=== PATIENT | female | born 1970 | race Caucasian/White ===

== ENCOUNTER → 2016-12-20 | Outpatient (CLI) | payer BC | END | disposition home or self-care (01) | LOC: YCFC.O 07:20 | PROVIDERS: ATTEND Nurse Practitioner Family | DX: Z13.220 Encounter for screening for lipoid disorders (principal); E66.3 Overweight ==

== ENCOUNTER 2018-08-24 09:29 | Inpatient (IN) | payer BC, OTHER ==
[2018-08-24] MEDS ORDERED: IPRATROPIUM/ALBUTEROL 3 ML VIAL NEB ONE (10:26)
[2018-08-24] MEDS ORDERED: PROCHLORPERAZINE INJ 10 MG/2 ML VIAL IV ONE (10:26)
[2018-08-24] MEDS ORDERED: LACTATED RINGERS 1,000 ML IVS ONE (10:26)
--- NOTE | 2018-08-24 10:28 | ED.PDOC ---
History of Present Illness - General Chief Complaint: General Stated Complaint: N/V/D, fever, congestion Time Seen by Provider: 08/24/18 10:24 Source: patient - History of Present Illness Initial Comments: Tova Ordonez 47 y/o female came to ER with N/V/D fever Cough and congestion since last night. Timing/Duration: 24 hours Severity: moderate Improving Factors: nothing Worsening Factors: nothing Associated Symptoms: cough Allergies/Adverse Reactions: Allergies NO KNOWN ALLERGY Allergy (Verified 08/24/18 09:49) Review of Systems - Review of Systems Constitutional: States: see HPI, fever EENTM: States: see HPI, nose congestion Respiratory: States: see HPI, cough Cardiology: States: no symptoms reported Gastrointestinal/Abdominal: States: see HPI, diarrhea Genitourinary: States: no symptoms reported Musculoskeletal: States: no symptoms reported Skin: States: no symptoms reported Neurological: States: no symptoms reported All other Systems: Reviewed and Negative Past Medical History (General) - Patient Medical History Hx Stroke: No Hx Asthma: Yes Hx of COPD: Yes Hx Congestive Heart Failure: No Hx Diabetes: No Hx MRSA: No Surgical History: other - Vaccination History Hx Tetanus, Diphtheria Vaccination: Yes Hx Influenza Vaccination: Yes - 2017 Hx Pneumococcal Vaccination: No - Social History Hx Tobacco Use: Yes - Quit 2015 Hx Alcohol Use: No Hx Physical Abuse: No Hx Emotional Abuse: No - Female History Patient is a Female of Child Bearing Age (10 -59 yrs old): No - Menopause Family Medical History - Family History Mother Living Status: Still Living Hx Family Asthma: - Mom has COPD Hx Family;Other: Father has Diabetes Physical Exam - Physical Exam General Appearance: Alert, Comfortable, No apparent distress Eye Exam: bilateral normal Ears, Nose, Throat: hearing grossly normal, normal ENT inspection, normal pharynx Neck: non-tender, supple, normal inspection Respiratory: no respiratory distress, rhonchi Cardiovascular/Chest: normal peripheral pulses, regular rate, rhythm, no murmur Peripheral Pulses: radial,right: 2+, radial,left: 2+ Gastrointestinal/Abdominal: non tender, soft, no organomegaly Back Exam: no CVA tenderness, no vertebral tenderness Extremity: no pedal edema, no calf tenderness Neurologic: alert, oriented x 3 Skin Exam: normal color, warm/dry Progress - Progress Progress: 08/24/18 10:31 Vital Signs - 8 hr 08/24/18 09:35 Temperature 103.1 F H Respiratory 18 Rate Blood Pressure 90/62 [Right Arm] O2 Sat by Pulse 94 L Oximetry 08/24/18 13:35 Vital Signs - 8 hr 08/24/18 08/24/18 09:35 11:03 Temperature 103.1 F H Pulse Rate 109 H Respiratory 18 20 Rate Blood Pressure 90/62 [Right Arm] O2 Sat by Pulse 94 L 95 Oximetry - Results/Orders Results/Orders: 08/24/18 10:02 STREP A SCREEN CULTURE Stat 08/24/18 10:26 IV Care:Saline Lock per Protoc QSHIFT CLOSTRIDIUM DIFFICILE AG/TOXIN Urgent URINALYSIS Stat 08/24/18 12:22 Azithromycin IV [Zithromax IV] 500 mg Sodium Chloride 0.9% 250Ml [NS 250ml] 250 ml IVPB ONCE BLOOD CULTURE Stat Laboratory Results - last 24 hr 08/24/18 08/24/18 08/24/18 10:02 10:26 10:26 WBC 13.5 H RBC 4.65 Hgb 12.9 Hct 39.7 MCV 85.4 MCH 27.7 MCHC 32.5 L RDW 14.5 Plt Count 151 MPV 10.1 Absolute Neuts (auto) 12.00 H Absolute Lymphs (auto) 0.70 L Absolute Monos (auto) 0.80 Absolute Eos (auto) 0.00 Absolute Basos (auto) 0.00 Neutrophils % 88.4 H Lymphocytes % 5.2 L Monocytes % 6.2 Eosinophils % 0.1 L Basophils % 0.1 PT 11.4 H INR 1.14 PTT (SP) 27.2 Sodium 132 L Potassium 4.3 Chloride 99 L Carbon Dioxide 22 Anion Gap 15.3 BUN 14 Creatinine 0.87 BUN/Creatinine Ratio 16.1 Random Glucose 90 Serum Osmolality 264.5 L Lactic Acid 1.9 Calcium 7.8 L Magnesium 1.3 L Total Bilirubin 0.9 Direct Bilirubin 0.3 H Indirect Bilirubin 0.6 AST 35 ALT 18 Alkaline Phosphatase 93 Creatine Kinase 566 H* CK-MB (CK-2) 8.3 H* CK-MB (CK-2) % 1.47 Troponin I < 0.02 Serum Total Protein 6.5 Albumin 3.1 L Group A Strep Rapid Negative - EKG/XRAY/CT XRAY: chest - upper lobe pneumonia right Departure - Departure Clinical Impression: Nausea vomiting and diarrhea Pneumonia Qualifiers: Pneumonia type: due to unspecified organism Laterality: right Lung location: upper lobe of lung Qualified Code(s): J18.1 - Lobar pneumonia, unspecified organism Time of Disposition: 13:34 Disposition: Admit Patient Departure Forms: ED Discharge - Pt. Copy, Patient Portal Self Enrollment Referrals: Shahana Palacio, LINE SERVICER [Primary Care Provider] - 1-2 Weeks Decision To Admit - Decistion To Admit Decision to Admit Reason: Admit from ER Decision to Admit Date: 08/24/18 - D/W Dr. Winn-Hospitalist Decision to Admit Time: 13:32
--- NOTE | 2018-08-24 10:51 | RAD ---
EXAM: Chest,1 View CLINICAL HISTORY: cough/fever COMPARISON STUDY: None TECHNICAL: AP chest x-ray FINDINGS: Dense consolidative opacity is present within the right upper lobe. Pneumonia is likely given the patient's clinical history. Follow-up will be needed after therapy to show resolution and exclude an underlying mass. There is no edema or large effusion. The heart is not enlarged. IMPRESSION: 1. Right upper lobe consolidation is suggestive of pneumonia but post therapy follow-up is recommended to show resolution. Electronically signed by: Wisam Jett MD 08/24/2018 10:48 AM CDT
[2018-08-24] MEDS ORDERED: cefTRIAXone SODIUM 1 GM in SODIUM CHL 0.9% 50ML MIN-BAG+ 50 ML IVPB ONE (12:22)
[2018-08-24] MEDS ORDERED: AZITHROMYCIN IV 500 MG in SODIUM CHLORIDE 0.9% 250ML 250 ML IVPB ONE (12:22)
[2018-08-24] MEDS ORDERED: AZITHROMYCIN IV 500 MG VIAL IVPB ONE (12:24)
[2018-08-24] MEDS ORDERED: SODIUM CHL 0.9% 50ML MIN-BAG+ 50 ML IVPB ONE (12:24)
[2018-08-24] MEDS ORDERED: cefTRIAXone SODIUM 1 GM VIAL ONE (12:24)
[2018-08-24] MEDS ORDERED: SODIUM CHLORIDE 0.9% 250ML 250 ML ONE (12:24)
[2018-08-24] MEDS ORDERED: SODIUM CHLORIDE 0.9% 1000ML 1,000 ML IVS PRN ×2 (13:32→13:50)
[2018-08-24] MEDS ORDERED: SODIUM CHLORIDE 0.9% (FLUSH) 10 ML SYG IV PRN (13:50)
[2018-08-24] MEDS ORDERED: IPRATROPIUM/ALBUTEROL 3 ML VIAL NEB PRN (13:50)
[2018-08-24] MEDS ORDERED: ONDANSETRON 4 MG TAB PO PRN (13:56)
[2018-08-24] MEDS ORDERED: SODIUM CHLORIDE 0.9% 1000ML 1,000 ML IVS ONE ×2 (13:56→17:00)
[2018-08-24] MEDS ORDERED: IV SET AND CAP CHANGE INJ INJ SCH (14:00)
[2018-08-24] MEDS ORDERED: ENOXAPARIN SODIUM 40 MG/0.4 ML SYG SUBCU SCH (14:00)
--- NOTE | 2018-08-24 14:02 | HP ---
CHIEF COMPLAINT: Nausea and vomiting times 1 day, fever and chills. HISTORY OF PRESENT ILLNESS: The patient was brought to the Emergency Room with her mother after having the insidious onset of nausea and vomiting the day prior to her arrival. She had some fevers and chills intermittently over the last 24 hours, but continues to be nauseated and vomited last this morning around 0700. She has not been hospitalized or at any healthcare facilities within the last 90 days. She does not endorse any further symptoms other than a dry underlying cough that is intermittent throughout the day. She denies any dizziness or any chest pains. Workup in the E. R. found the patient to have a temperature of 103.1, was tachycardic, tachypneic, and also had a white blood cell count of 13.5. Upon review of chest x-ray, it was found that she had a right upper lobe pneumonia, but also a normal lactate. Hospitalist was called for admission due to pneumonia. REVIEW OF SYSTEMS: GENERAL: The patient is lying on the bed in acute distress, just feeling sick and tired as well as slightly dehydrated, able to converse normally though. CHEST: The patient has a cough and slight shortness of breath, but no chest wall pain. CARDIO: She denies chest pain, denies palpitations, no extremity swelling. ABDOMEN: Denies any abdominal pain, no problems with bowel movements. NEUROLOGIC: Denies confusion, does have a small headache. EXTREMITIES: No deformities, extremities are cold. PAST MEDICAL HISTORY: 1. Chronic asthma. PAST SURGICAL HISTORY: 1. History of herniated disc repair. CURRENT MEDICATIONS: 1. ProAir inhaler p.r.n. wheezing. 2. Symbicort inhaler b.i.d. ALLERGIES: SOCIAL HISTORY: 30 pack year smoking history, quit 3 years ago. Denies any alcohol use. Denies any illicit drug use. PHYSICAL EXAMINATION: VITAL SIGNS: Temperature 103.1, heart rate 109, respiratory rate 20, blood pressure 90/62, O2 saturations 94 on room air. GENERAL: Patient lying on her left side in bed, able to converse normally but does not feel very well. No confusion. CHEST: Lungs are clear to auscultation without wheezing, aside from a slight decrease in air movement in the right upper lobe consistent with chest x-ray seen below, no chest wall tenderness, slight cough during exam. CARDIOVASCULAR: Tachycardic, no murmurs, normal rhythm, no peripheral edema. ABDOMEN: Soft, non-tender, no masses appreciated. EXTREMITIES: All extremities with normal pulses, no deformities. NEUROLOGIC: Alert and oriented to person, place, and time, cranial nerves intact. LABORATORY: WBC 13.5, hemoglobin/hematocrit 12.9/39.7, platelet count 151, RDW is normal at 14.5. Sodium 132, potassium 4.3, chloride 99, CO2 is 22, BUN/creatinine 14/0.87, lactic acid normal at 1.9, magnesium slightly low at 1.3. CK 566, troponin negative. Rapid Strep swab negative. MICROBIOLOGY: Influenza swab negative. Blood cultures pending, drawn. IMAGING: Chest x-ray 08/24/18: "Right upper lobe consolidation suggestive of pneumonia but post therapy followup is recommended to show resolution." ASSESSMENT: 1. Sepsis secondary to right upper lobe pneumonia, tachycardia/fever/ tachypnea/WBCs elevation are present. 2. Leukocytosis secondary to #1. 3. Fever secondary to #1. 4. Tachycardia secondary to #1. 5. Chronic asthma. PLAN: Will admit Ms. Ordonez with sepsis secondary to right upper lobe pneumonia. We have initiated sepsis protocol regarding fluid resuscitation. She received 1 liter of normal saline in the E. R. We will continue with another bolus and then IV fluids as maintenance and a half rate. Given her history of asthma we will also have DuoNeb p.r.n. wheezing, even though she is not wheezing and did not have any sort of asthma attack at this time. We will prophylactically give her Lovenox for DVT prevention. She was given Rocephin and azithromycin in the E. R. via IV. We will continue these each daily. Given her low sodium, I expect this to normalize with fluids resuscitation. She also has slight nausea at baseline, antiemetics are on board for this. I presume her stay will be at least 2 midnights until we can resolve the sepsis and confirm that she has good p.o. intake and her fluid status has normalized. #[id number] [facility]
[2018-08-24] MEDS ORDERED: ACETAMINOPHEN 500 MG TAB PO ONE (14:33)
[2018-08-24] MEDS ORDERED: SODIUM CHLORIDE 0.9% IVPB PRN (15:11)
[2018-08-24] MEDS ORDERED: IBUPROFEN IVPB PRN (15:11)
[2018-08-24] MEDS ORDERED: ALBUTEROL SULFATE 2.5 MG/3 ML VIAL NEB PRN (15:13)
[2018-08-24] MEDS: IPRATROPIUM/ALBUTEROL 3 ML VIAL NEB SCH ×2 (15:29→20:27)
[2018-08-24] MEDS ORDERED: IBUPROFEN 200 MG TAB PO PRN (15:42)
[2018-08-24] MEDS ORDERED: MAGNESIUM SULFATE PREMIX 2GM 2 GM in PREMIX BAG 1 BAG IVPB ONE (16:19)
[2018-08-24] MEDS ORDERED: MAGNESIUM SULFATE PREMIX 2GM 50 ML IVPB ONE (16:43)
[2018-08-24 20:05] VITALS: BP 72/45; TEMP 98.1
[2018-08-24] MEDS ORDERED: NOREPINEPHRINE BITARTRATE 4 MG/4 ML VIAL IVPB ONE (20:41)
[2018-08-24] MEDS ORDERED: DEXTROSE 5% (AVIVA) 500ML 500 ML IVPB ONE (20:43)
[2018-08-24 21:53] VITALS: O2SAT 100
--- NOTE | 2018-08-25 08:26 | DS ---
ADMISSION DIAGNOSIS: 1. Sepsis secondary to right upper lobe pneumonia, tachycardia/fever/ tachypnea/WBCs elevation are present. 2. Leukocytosis secondary to #1. 3. Fever secondary to #1. 4. Tachycardia secondary to #1. 5. Chronic asthma. REASON FOR ADMISSION: The patient was brought to the Emergency Room with her mother after having the insidious onset of nausea and vomiting the day prior to her arrival. She had some fevers and chills intermittently over the last 24 hours, but continues to be nauseated and vomited last this morning around 0700. She has not been hospitalized or at any healthcare facilities within the last 90 days. She does not endorse any further symptoms other than a dry underlying cough that is intermittent throughout the day. She denies any dizziness or any chest pains. Workup in the E. R. found the patient to have a temperature of 103.1, was tachycardic, tachypneic, and also had a white blood cell count of 13.5. Upon review of chest x-ray, it was found that she had a right upper lobe pneumonia, but also a normal lactate. Hospitalist was called for admission due to pneumonia. HOSPITAL COURSE: Ms. Ordonez was initially admitted meeting criteria for sepsis secondary to right upper lobe pneumonia. She responded well to initial fluid resuscitation per sepsis protocol, but after completing the resuscitation, her blood pressure remained low enough to require an extra one liter bolus. Her blood pressure still remained low after the third bolus, thus we were able to put an external jugular IV on the right side and start Levophed in preparation for transfer to [facility] for more critical care. VITAL SIGNS: Last blood pressure 72/45. Temperature 98.1. Pulse 81. O2 saturation 97% on 1 liter nasal cannula. LABORATORY: White blood cell count 13.5, hemoglobin 12.9, hematocrit 39.7, platelet count 151. Low sodium 132, potassium 4.3, chloride 99, lactate 1.9. BUN 14, creatinine 27. Troponin negative. Creatinine kinase 166. Urinalysis with moderate blood and 3 to 5 urine red blood cells. Group A strep negative. Influenza negative. IMAGING: Chest x-ray 08-24-18 shows right upper lobe consolidation, suggestive of pneumonia. DISCHARGE DIAGNOSIS: 1. Sepsis secondary to right upper lobe pneumonia, failed IV fluid resuscitation, requiring pressors and transfer. 2. Leukocytosis and fever secondary to #1. 3. Tachycardia secondary to #1. 4. Chronic asthma. PLAN: Ms. Ordonez was able to obtain pressor support with Levophed through a right external jugular line placed by ER Dr. Reeder. She was taken by air transport to [facility] Emergency Room for further critical care given her poor response to IV fluid resuscitation. She was treated with a full IV dose of Rocephin and azithromycin in the Emergency Room. #[id number] [facility]
[2018-08-25] MEDS ORDERED: cefTRIAXone SODIUM 1 GM in SODIUM CHL 0.9% 50ML MIN-BAG+ 50 ML IVPB SCH (12:00)
[2018-08-25] MEDS ORDERED: AZITHROMYCIN IV 500 MG in SODIUM CHLORIDE 0.9% 250ML 250 ML IVPB SCH (13:00)
== END 2018-08-24 21:25 | disposition short-term general hospital (02) | DRG 871 ==
LOC: ER 09:29 → MS 14:00
PROVIDERS: ADMIT Family Medicine; ATTEND Family Medicine
DX: A41.9 Sepsis, unspecified organism (principal); J18.1 Lobar pneumonia, unspecified organism; J45.909 Unspecified asthma, uncomplicated; Z79.51 Long term (current) use of inhaled steroids; Z79.899 Other long term (current) drug therapy; Z87.891 Personal history of nicotine dependence

== ENCOUNTER 2019-05-20 10:19 | Inpatient (IN) | payer OTHER ==
[2019-05-20] MEDS ORDERED: IPRATROPIUM/ALBUTEROL 3 ML VIAL NEB ONE (10:31)
[2019-05-20] MEDS ORDERED: SODIUM CHLORIDE 0.9% 1000ML 1,000 ML IVS ONE (10:32)
[2019-05-20] MEDS ORDERED: cefTRIAXone SODIUM 1 GM in SODIUM CHL 0.9% 50ML MIN-BAG+ 50 ML IVPB ONE (10:32)
[2019-05-20] MEDS ORDERED: ONDANSETRON INJ 4 MG/2 ML VIAL IV ONE (10:32)
[2019-05-20] MEDS ORDERED: ACETAMINOPHEN 325 MG TAB PO ONE (10:32)
[2019-05-20] MEDS ORDERED: methylPREDNISolone SODIUM SUC 125 MG/2 ML VIAL IV ONE (10:33)
[2019-05-20] MEDS ORDERED: AZITHROMYCIN IV 500 MG in SODIUM CHLORIDE 0.9% 250ML 250 ML IVPB ONE (10:33)
--- NOTE | 2019-05-20 10:40 | ED.PDOC ---
History of Present Illness - General Chief Complaint: Respiratory Problem Stated Complaint: dyspnea, fever Time Seen by Provider: 05/20/19 10:30 Additional Information: Patient is a 48-year-old female who presents to the ED with chief complaint of shortness of breath beginning yesterday morning. Patient complains of a productive cough of yellow sputum and fever to 103. Symptoms are not improved with rest. Patient has an albuterol inhaler that was prescribed to her by her PCP for allergies and she indicates that use of the inhaler helps with her shortness of breath. Patient denies chest pain, nausea, vomiting, or abdominal pain. Patient denies history of tobacco smoking but does say that she vapes. The patient has had similar symptoms this past August when she was admitted to the hospital for pneumonia and sepsis. Denies history of COPD or coronary artery disease. Patient is feeling slightly better at this time status post EMS albuterol treatment. Patient was also given Solu-Medrol 125 mg by EMS prior to arrival. Patient has no other complaints. - History of Present Illness Allergies/Adverse Reactions: Allergies NO KNOWN ALLERGY Allergy (Verified 08/24/18 16:07) Home Medications: Ambulatory Orders Albuterol Sulfate [Proair Hfa] 1 each INH PRN 05/20/19 Budesonide-Formoterol Fumarate [Symbicort 160-4.5 Mcg/Act] 1 each INH BID 05/20/19 FLUoxetine HCL [Prozac] 10 mg PO DAILY 05/20/19 Montelukast [Singulair] 10 mg PO DAILY 05/20/19 Review of Systems - Review of Systems Constitutional: States: chills, fever, other - fatigue EENTM: States: no symptoms reported Respiratory: States: cough, short of breath, wheezing. Denies: orthopnea Cardiology: States: no symptoms reported. Denies: chest pain, palpitations, syncope Gastrointestinal/Abdominal: States: no symptoms reported. Denies: abdominal pain, nausea, vomiting Genitourinary: States: no symptoms reported. Denies: dysuria Musculoskeletal: Denies: back pain, neck pain Skin: States: no symptoms reported. Denies: rash Neurological: States: no symptoms reported. Denies: headache, weakness Endocrine: States: no symptoms reported Hematologic/Lymphatic: States: no symptoms reported All other Systems: Reviewed and Negative Past Medical History (General) - Patient Medical History Hx Seizures: No Hx Stroke: No Hx Asthma: Yes - teenager Hx of COPD: Yes Hx Congestive Heart Failure: No Hx Pacemaker: No Hx Hypertension: No Hx Diabetes: No Hx MRSA: No Surgical History: other - Vaccination History Hx Tetanus, Diphtheria Vaccination: Yes Hx Influenza Vaccination: Yes - 2019 Hx Pneumococcal Vaccination: No - Social History Hx Tobacco Use: Yes - Quit 2015 Hx Alcohol Use: No Hx Substance Use: No Hx Physical Abuse: No Hx Emotional Abuse: No Family Medical History - Family History Mother Living Status: Still Living Hx Family Asthma: - Mom has COPD Hx Family;Other: Father has Diabetes Physical Exam - Physical Exam General Appearance: Alert, No apparent distress, Ill Appearing Eyes, Ears, Nose, Throat Exam: normal ENT inspection, pharynx normal Neck: non-tender, full range of motion, supple, normal inspection Respiratory: chest non-tender, no respiratory distress, rhonchi - mild, left- sided, wheezing - Mild to moderate bilaterally. 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 05/20/19 14:59 Patient feeling much better status post albuterol nebulizer treatments, IV fluids and IV steroids. Patient's chest x-ray was unremarkable and did not show obvious pneumonia but clinically patient with a fever, rhonchi and clinical pneumonia. Patient cultured and given IV Rocephin and azithromycin empirically. Pt's DD is elevated but given the patient's fever and CT findings I believe her d-dimer elevation is reactive and not an indicator of PE. Patient's blood pressure is stable and normal and her lactate is normal as is her WBC. I have discussed the patient's progress with Dr. Marcelina Gary, hospitalist, who accepts patient for admission. Patient is comfortable and stable at this time and accepting of admission, her O2 sats are in the low 90s on room air and in the mid 90s on nasal cannula. 05/20/19 15:05 - Results/Orders Results/Orders: Differential diagnosis includes but is not limited to pneumonia, sepsis, bronchitis, influenza. EKG: Sinus tachycardia, rate 104, normal axis, normal QRS, T wave inversions inferiorly. ST depressions inferiorly and laterally. Negative STEMI. EKG interpreted by by Jose Campos M.D. Departure - Departure Clinical Impression: Pneumonia, organism unspecified Time of Disposition: 14:58 Disposition: Admit Patient Condition: Fair Departure Forms: ED Discharge - Pt. Copy, Patient Portal Self Enrollment Referrals: Shahana Palacio NP [Primary Care Provider] - 1-2 Weeks Home Medications: Ambulatory Orders Albuterol Sulfate [Proair Hfa] 1 each INH PRN 05/20/19 Budesonide-Formoterol Fumarate [Symbicort 160-4.5 Mcg/Act] 1 each INH BID 05/20/19 FLUoxetine HCL [Prozac] 10 mg PO DAILY 05/20/19 Montelukast [Singulair] 10 mg PO DAILY 05/20/19 Decision To Admit - Decistion To Admit Decision to Admit Reason: Admit from ER - Dr. Marcelina Gary admitting physician. Decision to Admit Date: 05/20/19 Decision to Admit Time: 14:58
[2019-05-20] MEDS ORDERED: SODIUM CHL 0.9% 50ML MIN-BAG+ 50 ML IVPB ONE (10:56)
[2019-05-20] MEDS ORDERED: cefTRIAXone SODIUM 1 GM VIAL ONE (10:56)
--- NOTE | 2019-05-20 11:13 | RAD ---
Study: Single Frontal Radiograph of the Chest. Indication:SOB Comparison: August 24, 2017 Impression: Heart size normal. Previously noted right suprahilar consolidation has resolved. There is however mild to moderate interstitial prominence of the bilateral lungs which could reflect edema, atypical pneumonia, or scarring. Follow-up to resolution recommended. No pleural effusion or pneumothorax. No acute osseous abnormality. Electronically signed by: Garrett Freitas MD 05/20/2019 11:12 AM [facility]
[2019-05-20] MEDS ORDERED: AZITHROMYCIN IV 500 MG VIAL IVPB ONE ×2 (12:37→20:25)
[2019-05-20] MEDS ORDERED: SODIUM CHLORIDE 0.9% 250ML 250 ML ONE ×2 (12:37→20:25)
--- NOTE | 2019-05-20 14:25 | CT ---
EXAM DESCRIPTION: Chest w/Contrast CLINICAL HISTORY: 48 years Female, Fever, cough, rhonchi COMPARISON: Radiograph of the chest performed on the same day. TECHNIQUE: Contiguous thin section axial images through the chest were obtained after the administration of intravenous contrast. Sagittal and coronal reconstructions were reviewed. FINDINGS: The visualized thyroid gland and supraclavicular region appear normal. 1.7 cm right hilar lymph node is identified. Few subcentimeter mediastinal lymph nodes measuring up to 9 mm also noted. Trachea is midline and the central tracheobronchial tree is patent. Groundglass changes are identified in the bilateral upper lobes, most likely representing pneumonia. No evidence of pleural effusions. The heart is normal in size with no pericardial effusion. The visualized aorta is nonaneurysmal with mild atherosclerosis. The superior vena cava is normal in size and caliber. Mild coronary artery atherosclerosis. Thickening of the distal esophagus could be secondary to reflux. Limited evaluation of the upper abdomen demonstrates no gross abnormality. Mild degenerative changes are identified throughout the visualized spine. IMPRESSION: Groundglass changes are identified in the bilateral upper lobes, most likely representing pneumonia. Reactive lymph nodes are identified in the right hilum and mediastinum. This exam was performed according to our departmental dose-optimization program, which includes automated exposure control, adjustment of the mA and/or kV according to patient size and/or use of iterative reconstruction technique. Electronically signed by: Viki Jose MD 05/20/2019 2:24 PM [facility]PL[employer]IST[facility]
--- NOTE | 2019-05-20 15:30 | HP ---
SUPERVISING PHYSICIAN: Krishna Lay M.D. CHIEF COMPLAINT: Shortness of breath. HISTORY OF PRESENT ILLNESS: This is a 48 year-old female patient who has a history of vaping. She also quit smoking about 3 years ago. Yesterday, she had shortness of breath with a dry hacking cough. She does have a history of asthma as well and she took several breathing treatments. It progressively worsened and she came to the Emergency Room today for further workup. In the Emergency Room, her initial vital signs showed a temperature of 103.4 with a heart rate of 107, blood pressure 133/87, respiratory rate 28, O2 saturation 94%. It did drop to as low as the mid 80s on room air, but she does stay at 89 to 92% on 2 liters nasal cannula. Lab was also completed and her white blood cells are 6,400 with hemoglobin 12.1 and hematocrit 37.6. She did have a left shift on her differential. D-dimer was elevated at 0.87. Sodium was low at 134 with potassium 3.6, chloride 104, carbon dioxide 19, BUN 11, creatinine 0.8, glucose 113, serum osmolality 268.4, lactic acid 0.9 with calcium 8.2. BNP was 155. Serum total protein 6.3 with an albumin of 3.1. Blood cultures were obtained. Influenza A and B per PCR was negative. Chest x-ray showed interstitial prominence of the bilateral lungs which could reflect edema, atypical pneumonia or scarring. Followup recommended. CT of the chest with contrast showed ground glass changes identified in the bilateral upper lobes most likely representing pneumonia. Reactive lymph nodes are identified in the right hilum and mediastinum. She was given some fluids. She was given some Zithromax and some Rocephin. She was also given multiple breathing treatments. I was called for hospital admission. PAST MEDICAL HISTORY: 1. Asthma. 2. Depression. 3. Tobacco abuse. PAST SURGICAL HISTORY: 1. Herniated disc repair. CURRENT MEDICATIONS: 1. ProAir. 2. Symbicort. 3. Prozac. ALLERGIES: NO KNOWN DRUG ALLERGIES. SOCIAL HISTORY: She has a 30 pack year history. She quit smoking about 3-1/2 years ago. She does vape. She denies any ETOH or illicit drug use. REVIEW OF SYSTEMS: The patient is sitting up in bed. She is in moderate respiratory distress. HEENT: Negative for sinus symptoms, ear pain, vision changes or sore throat. RESPIRATORY: As per History of Present Illness. CARDIAC: Negative for chest pain, palpitations or tachycardia. ABDOMEN: Negative for abdominal pain, nausea, vomiting, diarrhea or constipation. NEUROLOGIC: Negative for headache, dizziness or seizures. PHYSICAL EXAMINATION: VITAL SIGNS: Temperature 99.5, heart rate 104, blood pressure 106/67, respiratory rate 22 to 26, O2 saturation 93% on 2 liters nasal cannula. GENERAL: This is a 48 year-old female patient who is sitting up in her hospital bed. She is in moderate respiratory distress. HEENT: Normocephalic and atraumatic. Pupils are equal and reactive. Oropharynx is clear. NECK: Supple without mass. RESPIRATORY: Bilateral inspiratory and expiratory wheezing throughout. She is tachypneic. She can only speak in short phrases due to her shortness of breath. CHEST: There is equal rise and fall of the chest with inspiration and expiration. CARDIOVASCULAR: Regular rate and rhythm. At times she is tachycardic. GASTROINTESTINAL: Abdomen is soft, nondistended, non-tender. Bowel sounds are positive. EXTREMITIES: No clubbing, cyanosis or edema. SKIN: Warm and dry. NEUROLOGIC: She is awake, alert and oriented times three. LABORATORY: Labs and films are as per the History of Present Illness. ASSESSMENT: 1. Sepsis related to bilateral upper lobe pneumonia. She had an admitting temperature of 103.4, heart rate 108, respiratory rate in the upper 20s. 2. History of tobacco abuse. She did quit 3-1/2 years ago but she does continue to vape. 3. History of asthma. 4. Depression and anxiety. PLAN: The patient has been admitted to the hospital. I have started the pneumonia protocol. She will have aggressive pulmonary hygiene as well as I will continue on her Rocephin and azithromycin. She received a dose of IV steroids in the Emergency Room and I will continue those with a taper. I have ordered p.r.n. and scheduled breathing treatments, including Ipratropium as needed for continuous nebulizer. I have ordered Lovenox for deep venous thrombosis prophylaxis and a proton pump inhibitor for ulcer prophylaxis. Her home medications will be restarted as soon as they are verified. Lab and a chest x-ray have been ordered for in the morning. Will continue to monitor closely and follow as needed. [facility][id number] [facility]
[2019-05-20] MEDS ORDERED: SODIUM CHLORIDE 0.9% (FLUSH) 10 ML SYG IV PRN (17:19)
[2019-05-20] MEDS ORDERED: ALBUTEROL SULFATE 2.5 MG/3 ML VIAL NEB PRN (17:19)
[2019-05-20] MEDS ORDERED: KCL 20MEQ/0.45% NS 1,000 ML IVS PRN (17:26)
[2019-05-20] MEDS ORDERED: IV SET AND CAP CHANGE INJ INJ SCH (17:30)
[2019-05-20] MEDS ORDERED: KCL 20MEQ/0.45% NS 1,000 ML IVS ONE (17:32)
[2019-05-20] MEDS ORDERED: ALBUTEROL SULFATE 2.5 MG/3 ML VIAL NEB ONE (17:46)
[2019-05-20] MEDS: ACETAMINOPHEN 325 MG TAB PO PRN (19:15)
[2019-05-20] MEDS ORDERED: IPRATROPIUM/ALBUTEROL 3 ML VIAL NEB PRN (19:28)
[2019-05-20] MEDS ORDERED: methylPREDNISolone SODIUM SUC 40 MG/ML VIAL ONE (20:25)
[2019-05-20] MEDS: ENOXAPARIN SODIUM 40 MG/0.4 ML SYG SUBCU SCH (20:30)
[2019-05-20] MEDS: BENZONATATE PERLES 100 MG CAP PO SCH (20:31)
[2019-05-20] MEDS: guaiFENesin ER TAB 600 MG TAB PO SCH (20:31)
[2019-05-20] MEDS: IPRATROPIUM/ALBUTEROL 3 ML VIAL INH SCH (21:31)
[2019-05-20] MEDS ORDERED: SODIUM CHLORIDE 0.9% NEB 3 ML VIAL ONE (21:48)
[2019-05-20] MEDS: IPRATROPIUM BROMIDE NEBS 0.5 MG/2.5 ML VIAL NEB PRN (22:00)
[2019-05-20] MEDS ORDERED: methylPREDNISolone SODIUM SUC 40 MG/ML VIAL IV SCH (22:00)
[2019-05-21] MEDS ORDERED: KCL 20MEQ/0.45% NS 1,000 ML IVS ONE (02:58)
[2019-05-21] MEDS ORDERED: methylPREDNISolone SODIUM SUC 40 MG/ML VIAL IV ONE ×2 (04:00→10:00)
[2019-05-21] MEDS ORDERED: methylPREDNISolone SODIUM SUC 40 MG/ML VIAL IV SCH ×2 (04:00→22:00)
[2019-05-21] MEDS: ACETAMINOPHEN 325 MG TAB PO PRN ×3 (04:23→22:03)
[2019-05-21] MEDS ORDERED: SODIUM CHLORIDE 0.9% NEB 3 ML VIAL ONE ×2 (04:23→16:48)
[2019-05-21] MEDS: IPRATROPIUM BROMIDE NEBS 0.5 MG/2.5 ML VIAL NEB PRN (04:44)
[2019-05-21] MEDS: PANTOPRAZOLE SODIUM IV 40 MG VIAL IV SCH (06:12)
[2019-05-21] MEDS: AZITHROMYCIN IV 500 MG in SODIUM CHLORIDE 0.9% 250ML 250 ML IVPB SCH (06:15)
[2019-05-21] MEDS ORDERED: cefTRIAXone SODIUM 1 GM VIAL ONE (07:21)
[2019-05-21] MEDS ORDERED: SODIUM CHL 0.9% 50ML MIN-BAG+ 50 ML IVPB ONE (07:21)
--- NOTE | 2019-05-21 07:36 | RAD ---
CHEST, TWO VIEW, XR CLINICAL HISTORY: Pneumonia COMPARISON: Chest 05/20/2019 and 10/24/2018 TECHNIQUE: Frontal and lateral Chest. FINDINGS: The lung volumes are increased. Coarse lung markings are chronic. No pulmonary edema. No consolidation. Pleural spaces are clear. No pneumothorax. There is an old fracture lateral left rib six. Unremarkable soft tissues. IMPRESSION: 1. No acute chest disease. 2. Hyperinflation with chronic lung changes. Electronically signed by: Malena Magallanes DO 05/21/2019 7:34 AM [facility]
[2019-05-21] MEDS: IPRATROPIUM/ALBUTEROL 3 ML VIAL INH SCH ×4 (08:40→21:03)
[2019-05-21] MEDS: BUDESONIDE/FORMOTEROL 160/4.5 60 PUFF/6 GM INH INH SCH ×2 (08:40→23:57)
[2019-05-21] MEDS: FLUoxetine HCL 10 MG CAP PO SCH (09:36)
[2019-05-21] MEDS: cefTRIAXone SODIUM 1 GM in SODIUM CHL 0.9% 50ML MIN-BAG+ 50 ML IVPB SCH (09:36)
[2019-05-21] MEDS: BENZONATATE PERLES 100 MG CAP PO SCH ×3 (09:36→20:25)
[2019-05-21] MEDS: guaiFENesin ER TAB 600 MG TAB PO SCH ×2 (09:36→20:25)
[2019-05-21] MEDS: MONTELUKAST 10 MG TAB PO SCH (09:36)
--- NOTE | 2019-05-21 10:57 | PN ---
SUPERVISING PHYSICIAN: Krishna Lay MD DATE: 05/21/19 SUBJECTIVE: The patient is sitting up in her bed. She continues to have to sit upright for her shortness of breath. She does complain of shortness of breath although it has improved since yesterday. She has a difficult time walking to the bathroom without getting extremely short of breath. Any exertion tires her out pretty quickly. She denies any chest pain, nausea or vomiting. OBJECTIVE: VITAL SIGNS: Temperature 98. Heart rate 100. Blood pressure 134/71. Respiratory rate 24. O2 saturation 94% on 2 liters nasal cannula. RESPIRATORY: A few scattered rhonchi in the upper lung connolly, a rare to occasional inspiratory wheeze as well in the upper lung connolly. There is expiratory wheezing throughout. She is tachypneic. She does have to speak in short phrases due to her shortness of breath, but this has improved since yesterday. CARDIAC: Regular rate and rhythm. At times, it is tachycardic. GASTROINTESTINAL: Abdomen is soft, nondistended, nontender. Bowel sounds are positive. NEUROLOGIC: Awake, alert and oriented times three. LABORATORY: WBCs 8.3, hemoglobin 11.4, hematocrit 35.5. She does continue to have a left shift on her differential. Sodium slightly low at 134. Calcium 8.1. Otherwise, her metabolic panel is unremarkable. Sputum culture pending. Blood cultures are pending. Chest x-ray shows no acute chest disease, but hyperinflation and chronic lung changes. All other labs and films have been reviewed via the EMR. ASSESSMENT: 1. Sepsis related to bilateral upper lobe pneumonia. She had an admitting temperature of 103.4, heart rate 108, respiratory rate in the upper 20s. 2. History of tobacco abuse. She did quit 3-1/2 years ago, but she does continue to vape. 3. History of asthma. 4. Depression and anxiety. 5. Elevated D-dimer. She had a CT of the chest with contrast that did not show any pulmonary embolism. At this point, she has no acute signs or symptoms of a pulmonary emboli and she is on Lovenox. PLAN: We will continue present supportive care including her Rocephin and azithromycin. I am slowly tapering down her IV steroids and hopefully we can change her to p.o. steroids tomorrow. Due to her extreme shortness of breath, I have given her a bedside commode for now. I will hold on labs in the morning. She did say her had tested positive for mono, so I will also check a mono spot. We will continue with aggressive pulmonary hygiene. I also spoke with Dr. Martel for him to review her CT of the chest to make sure he saw no evidence of any PE or if a CTA of the chest is needed. We will continue to monitor the patient closely and follow as needed. #[id number] [facility]
[2019-05-21] MEDS ORDERED: MORPHINE SULFATE INJ 10 MG/ML VIAL IV ONE (12:52)
[2019-05-21] MEDS ORDERED: ONDANSETRON INJ 4 MG/2 ML VIAL IV PRN (13:09)
[2019-05-21] MEDS: LORazepam 0.5 MG TAB PO PRN ×2 (13:13→21:12)
[2019-05-21] MEDS: methylPREDNISolone SODIUM SUC 40 MG/ML VIAL IV SCH ×2 (14:48→21:47)
[2019-05-21] MEDS ORDERED: ALBUTEROL SULFATE 2.5 MG/3 ML VIAL NEB ONE (16:47)
[2019-05-21] MEDS: IBUPROFEN 400 MG TAB PO PRN ×2 (20:25→21:23)
[2019-05-21] MEDS: ENOXAPARIN SODIUM 40 MG/0.4 ML SYG SUBCU SCH (20:25)
[2019-05-22] MEDS ORDERED: MORPHINE SULFATE INJ 10 MG/ML VIAL IV PRN (01:51)
[2019-05-22] MEDS ORDERED: LORazepam 0.5 MG TAB PO PRN (01:55)
[2019-05-22] MEDS ORDERED: AZITHROMYCIN IV 500 MG VIAL IVPB ONE (05:06)
[2019-05-22] MEDS ORDERED: SODIUM CHLORIDE 0.9% 250ML 250 ML ONE (05:06)
[2019-05-22] MEDS: ACETAMINOPHEN 325 MG TAB PO PRN (05:41)
[2019-05-22] MEDS: AZITHROMYCIN IV 500 MG in SODIUM CHLORIDE 0.9% 250ML 250 ML IVPB SCH (05:41)
[2019-05-22] MEDS: methylPREDNISolone SODIUM SUC 40 MG/ML VIAL IV SCH (05:42)
[2019-05-22] MEDS: PANTOPRAZOLE SODIUM IV 40 MG VIAL IV SCH (06:06)
[2019-05-22] MEDS ORDERED: SODIUM CHL 0.9% 50ML MIN-BAG+ 50 ML IVPB ONE (07:14)
[2019-05-22] MEDS ORDERED: cefTRIAXone SODIUM 1 GM VIAL ONE (07:14)
[2019-05-22] MEDS: IPRATROPIUM/ALBUTEROL 3 ML VIAL INH SCH ×4 (07:38→20:42)
[2019-05-22] MEDS: BUDESONIDE/FORMOTEROL 160/4.5 60 PUFF/6 GM INH INH SCH ×2 (08:00→20:42)
[2019-05-22] MEDS: FLUoxetine HCL 10 MG CAP PO SCH (08:36)
[2019-05-22] MEDS: MONTELUKAST 10 MG TAB PO SCH (08:36)
[2019-05-22] MEDS: BENZONATATE PERLES 100 MG CAP PO SCH ×3 (08:36→20:41)
[2019-05-22] MEDS: IBUPROFEN 400 MG TAB PO PRN (08:36)
[2019-05-22] MEDS: guaiFENesin ER TAB 600 MG TAB PO SCH ×2 (08:36→20:41)
[2019-05-22] MEDS: cefTRIAXone SODIUM 1 GM in SODIUM CHL 0.9% 50ML MIN-BAG+ 50 ML IVPB SCH (08:37)
[2019-05-22] MEDS: predniSONE 20 MG TAB PO SCH (09:29)
[2019-05-22] MEDS ORDERED: ALBUTEROL SULFATE 2.5 MG/3 ML VIAL NEB ONE (12:24)
[2019-05-22] MEDS ORDERED: SODIUM CHLORIDE 0.9% NEB 3 ML VIAL ONE (12:25)
--- NOTE | 2019-05-22 14:44 | PN ---
DATE: 05/22/19 SUPERVISING PHYSICIAN: Krishna Lay M.D. SUBJECTIVE: The patient is sitting up in bed. She continues to have some mild shortness of breath but is much improved. She is getting up and going to the bathroom without any significant dyspnea. She denies chest pain, nausea or vomiting. She does feel quite anxious when she gets short of breath, but other than that no complaints. OBJECTIVE: VITAL SIGNS: Temperature 98.5, heart rate 84, blood pressure 108/73, respiratory rate 18, O2 saturation 94% on 2 liters nasal cannula. RESPIRATORY: A few scattered expiratory wheezes throughout, slightly diminished at the bases. She does get slightly tachypneic with minimal exertion and with talking, but is much improved. CARDIAC: Regular rate and rhythm. GASTROINTESTINAL: Abdomen is soft, nondistended, non-tender. Bowel sounds are positive. NEUROLOGIC: She is awake, alert and oriented times three. LABORATORY: Sputum cultures are pending. Preliminary blood cultures show no growth after 24 hours. [place] screen was negative. All other labs and films have been reviewed via the EMR. ASSESSMENT: 1. Sepsis related to bilateral upper lobe pneumonia. She had an admitting temperature of 103.4, heart rate 108, respiratory rate in the upper 20s. 2. History of tobacco abuse. She did quit 3-1/2 years ago, but she does continue to vape. 3. History of asthma. 4. Depression and anxiety. 5. Elevated D-dimer. She had a CT of the chest with contrast that did not show any pulmonary embolism. At this point, she has no acute signs or symptoms of a pulmonary emboli and she is on Lovenox. PLAN: We will continue present supportive care. I have titrated her IV steroids off and she has started p.o. prednisone today. She will most likely need a few anti-anxiety medicine on discharge due to her anxiety over her shortness of breath. I have encouraged her to get up and walk in the halls. We will need to titrate off her oxygen before she can go home. Will continue with her present antibiotics and monitor her cultures. She should have a followup with Shahana Palacio after discharge. She will need a pulmonology consultation. Will continue to monitor closely and follow as needed. #[id number] [facility]
[2019-05-22] MEDS: ENOXAPARIN SODIUM 40 MG/0.4 ML SYG SUBCU SCH (20:41)
[2019-05-23] MEDS ORDERED: AZITHROMYCIN IV 500 MG VIAL IVPB ONE (04:55)
[2019-05-23] MEDS ORDERED: SODIUM CHLORIDE 0.9% 250ML 250 ML ONE (04:55)
[2019-05-23] MEDS: AZITHROMYCIN IV 500 MG in SODIUM CHLORIDE 0.9% 250ML 250 ML IVPB SCH (05:23)
[2019-05-23] MEDS: PANTOPRAZOLE SODIUM IV 40 MG VIAL IV SCH (06:24)
[2019-05-23] MEDS: BUDESONIDE/FORMOTEROL 160/4.5 60 PUFF/6 GM INH INH SCH (08:17)
[2019-05-23] MEDS: IPRATROPIUM/ALBUTEROL 3 ML VIAL INH SCH ×2 (08:17→12:35)
[2019-05-23] MEDS ORDERED: SODIUM CHL 0.9% 50ML MIN-BAG+ 50 ML IVPB ONE (08:26)
[2019-05-23] MEDS ORDERED: cefTRIAXone SODIUM 1 GM VIAL ONE (08:27)
[2019-05-23] MEDS: FLUoxetine HCL 10 MG CAP PO SCH (08:47)
[2019-05-23] MEDS: BENZONATATE PERLES 100 MG CAP PO SCH (08:47)
[2019-05-23] MEDS: MONTELUKAST 10 MG TAB PO SCH (08:47)
[2019-05-23] MEDS: cefTRIAXone SODIUM 1 GM in SODIUM CHL 0.9% 50ML MIN-BAG+ 50 ML IVPB SCH (08:47)
[2019-05-23] MEDS: predniSONE 20 MG TAB PO SCH (08:47)
[2019-05-23] MEDS: guaiFENesin ER TAB 600 MG TAB PO SCH (08:47)
[2019-05-23] MEDS ORDERED: SODIUM CHLORIDE 0.9% (FLUSH) 10 ML SYG IV SCH (09:00)
[2019-05-23 14:15] VITALS: O2SAT 95
[2019-05-23 15:28] VITALS: BP 120/79; TEMP 98.1
--- NOTE | 2019-05-25 09:47 | DS ---
SUPERVISING PHYSICIAN: Krishna Lay MD DISCHARGE DIAGNOSES: 1. Sepsis related to bilateral upper lobe pneumonia. She had an admitting temperature of 103.4, heart rate 108, respiratory rate in the upper 20s. 2. History of tobacco abuse. She did quit 3-1/2 years ago, but she does continue to vape. 3. History of asthma. 4. Depression and anxiety. 5. Elevated D-dimer. She had a CT of the chest with contrast that did not show any pulmonary embolism. She was started on Lovenox and had no signs or symptoms of an acute pulmonary emboli. HISTORY OF PRESENT ILLNESS: : This is a 48 year-old female patient who has a history of vaping. She quit smoking about 3 years ago.but started vaping at that time. The day prior to admission to the hospital she had a dry, hacking cough. She has a history of asthma as well and she took several breathing treatments at home. It progressively worsened to the point that she became so short of breath that she came to the Emergency Room. In the Emergency Room, her initial vital signs showed a temperature of 103.4 with a heart rate of 107, blood pressure 133/87, respiratory rate 28, O2 saturation 94%. It did drop to as low as the mid 80s on room air, but she does stay at 89 to 92% on 2 liters nasal cannula. Lab was also completed and her white blood cell count was 6,400 with hemoglobin 12.1 and hematocrit 37.6. She did have a left shift on her differential. D-dimer was elevated at 0.87. Sodium was low at 134 with potassium 3.6, chloride 104, carbon dioxide 19, BUN 11, creatinine 0.8, glucose 113, serum osmolality 268.4, lactic acid 0.9 with calcium 8.2. BNP was 155. Serum total protein 6.3 with an albumin of 3.1. Blood cultures were obtained. Influenza A and B per PCR was negative. Chest x-ray showed interstitial prominence of the bilateral lungs which could reflect edema, atypical pneumonia or scarring. Followup was recommended. CT of the chest with contrast showed ground glass changes identified in the bilateral upper lobes most likely representing pneumonia. Reactive lymph nodes are identified in the right hilum and mediastinum. She was given some fluids as well as some Zithromax and Rocephin. She was also given multiple breathing treatments as well as some IV steroids and I was called for hospital admission. HOSPITAL COURSE: The patient was admitted to the hospital and the pneumonia protocol was started. She had aggressive pulmonary hygiene and her Rocephin and azithromycin were continued. She had a taper of IV steroids that was done slowly and yesterday her steroids were changed to oral. She did have p.r.n. and scheduled Duoneb treatments but she also had ipratropium as needed for continuous nebulizer which she uses frequently. Her Lovenox was the continued for DVT prophylaxis and a protime pump inhibitor was given for ulcer prophylaxis. Her home medications were restarted. Her lab and vitals were monitored closely. Over the next several days she slowly improved but she continued to have excessive coughing as well as shortness of breath. Her steroids were again tapered very slowly. She was given aggressive pulmonary hygiene. She had a difficult time being weaned off of her oxygen but she has been weaned off today and her oxygen saturation has been staying in the mid 90s, dropping to the low 90s with exertion. She also had several bouts of anxiety due to air hunger and shortness of breath. She was given Ativan that helped greatly. We did smoking cessation teaching that included her encouragement to stop vaping. She will be discharged home today in stable. condition. LABORATORY: Her WBCs remained stable at 6,400 and 8,300 with a stable hemoglobin and hematocrit of 11.1 and 35.5. She did have a left shift on her differential that remained. Her sodium remained slightly low at 134 and her calcium slightly low at 8.1. Other electrolytes were within normal limits. Her liver enzymes were unremarkable. [place] screen was negative. Sputum culture showed contamination by oropharyngeal secretions. Her preliminary blood cultures showed no growth after [address] and original chest x-ray are as per the history of present illness. Her final chest x-ray showed no acute chest disease with hyperinflation and chronic lung changes. DISCHARGE PLAN: The patient will be discharged home in stable condition. She is to resume her previous diet and increase activity as tolerated. She is to followup with Sheri Palacio this next week for hospital followup. She has completed her azithromycin therapy but in addition to her home medications she is to have Cefdinir for the next 7-1/2 days as well as Ativan as needed for anxiety and a prednisone taper as directed. She is to return to the hospital or followup with Sheri Palacio for any problems or complications and it is also recommended that she stop vaping. DISCHARGE MEDICATIONS: 1. Albuterol. 2. Singulair. 3. Prozac. 4. Symbicort. 5. Cefdinir. 6. Lorazepam. 7. Prednisone taper. [facility][id number] [facility]
== END 2019-05-23 14:40 | disposition home or self-care (01) | DRG 871 ==
LOC: ER 10:19 → OBSVTOIN 15:13 → UNDOADMOB 15:13 → MS 15:13
PROVIDERS: ADMIT Nurse Practitioner Acute Care; ATTEND Nurse Practitioner Acute Care
PROC: BW241ZZ Computerized Tomography (CT Scan) of Chest and Abdomen using Low Osmolar Contrast (ICD-10-PCS; principal; 2019-05-20)
DX: A41.9 Sepsis, unspecified organism (principal); J18.9 Pneumonia, unspecified organism; F17.290 Nicotine dependence, other tobacco product, uncomplicated; J45.909 Unspecified asthma, uncomplicated; F32.9 Major depressive disorder, single episode, unspecified; F41.9 Anxiety disorder, unspecified; R79.89 Other specified abnormal findings of blood chemistry; Z79.51 Long term (current) use of inhaled steroids; Z79.899 Other long term (current) drug therapy

== ENCOUNTER → 2020-03-31 | Outpatient (CLI) | payer OTHER ==
--- NOTE | 2020-03-31 20:45 | RAD ---
EXAM DESCRIPTION: Pelvis CLINICAL HISTORY: 49 years Female, HIP PAIN RIGHT COMPARISON: None. TECHNIQUE: Single view radiograph of the right hip. IMPRESSION: Partially obscured sacrum and coccyx by overlying bowel. No acute displaced fracture. No dislocation. Mild right greater than left hip arthrosis. Intact pubic joint. Mild sclerosis of the left greater than right SI joints. Lumbar spondylosis. Moderate colonic stool. Electronically signed by: Curt Billings MD 03/31/2020 8:44 PM CDT
--- NOTE | 2020-03-31 20:46 | RAD ---
EXAM DESCRIPTION: Knee,Right Complete CLINICAL HISTORY: 49 years Female, PAIN IN RIGHT KNEE COMPARISON: None. TECHNIQUE: 4 views radiograph of the right knee. IMPRESSION: No acute displaced fracture. No dislocation. Mild to moderate narrowing of the weightbearing knee compartment. Mild subchondral sclerosis along the medial tibial plateau. No joint line osteophytosis. Mild patellofemoral arthrosis. Moderate knee joint effusion. No lateral patellar tilt or subluxation. No radiographically apparent soft tissue abnormality. Electronically signed by: Curt Billings MD 03/31/2020 8:45 PM CDT
== END ==
LOC: RAD 09:22
PROVIDERS: ATTEND Orthopaedic Surgery
DX: M16.0 Bilateral primary osteoarthritis of hip (principal); M53.3 Sacrococcygeal disorders, not elsewhere classified; M47.896 Other spondylosis, lumbar region; M25.461 Effusion, right knee; M17.11 Unilateral primary osteoarthritis, right knee; M89.8X6 Other specified disorders of bone, lower leg